=== PATIENT | male | born 1950 | race Caucasian/White ===

== ENCOUNTER 2019-02-04 14:24 | Inpatient (IN) | payer MEDICARE, OTHER ==
[~2019-02-04] VITALS: Ht 175.3 cm; Wt 72.7 kg
[~2019-02-04 14:24] MED LIST: ALEVE PO; RANITIDINE PO
[2019-02-04 16:09] LABS: BASOPHILS % (AUTO) 0.2 % (0-1); EOSINOPHILS % (AUTO) 0.1 % (0-6); HEMOGLOBIN 13.2 g/dl (14.0-17.9); LYMPHOCYTES # (AUTO) 0.2 X10'3 (1.1-4.8); LYMPHOCYTES % (AUTO) 3.4 % (21-51); MEAN CORPUSCULAR HEMOGLOBIN 34.3 PG (27.0-31.0); MEAN CORPUSCULAR HGB CONC 33.9 g/dL (33.0-36.5); MEAN CORPUSCULAR VOLUME 101.3 FL (78-98); MEAN PLATELET VOLUME 10.3 FL (7.4-10.4); MONOCYTES # (AUTO) 0.3 X10'3 (0-0.9); NEUTROPHILS # (AUTO) 6.4 X10'3 (1.8-7.7); NEUTROPHILS % (AUTO) 92.3 % (42-75); PLATELET COUNT 93 X10'3 (140-440); RED BLOOD COUNT 3.85 X10'6 (4.70-6.10); RED CELL DISTRIBUTION WIDTH 14.1 % (11.5-14.5); WHITE BLOOD COUNT 6.9 X10'3 (4.5-11.0)
[2019-02-04] MEDS ORDERED: morphine 4 MG/ML inj SYRINge IV ONE (16:15)
[2019-02-04] MEDS ORDERED: morphine 2 MG/ML inj. syringe IV PRN (16:15)
[2019-02-04 16:23] LABS: ALANINE AMINOTRANSFERASE 33 U/L (12-78); ALBUMIN 4.2 G/DL (3.4-5.0); ALBUMIN/GLOBULIN RATIO 1.2 (1.1-1.5); ALKALINE PHOSPHATASE 73 IU/L (46-116); ANION GAP 8 (8-16); ASPARTATE AMINO TRANSFERASE 33 U/L (10-37); BILIRUBIN,TOTAL 0.7 MG/DL (0.1-1.0); BLOOD UREA NITROGEN 36 MG/DL (7-18); BUN/CREATININE RATIO 32.4 (5.4-32.0); CALCIUM 10.6 MG/DL (8.5-10.1); CHLORIDE 105 MMOL/L (99-107); CREATININE 1.11 MG/DL (0.60-1.10); GLUCOSE 122 MG/DL (70-104); POTASSIUM 4.7 MMOL/L (3.5-5.1); SODIUM 141 MMOL/L (135-145); TOTAL CARBON DIOXIDE 27.7 MMOL/L (24-32); TOTAL PROTEIN 7.8 G/DL (6.4-8.2); eGFR 65 ML/MIN
[2019-02-04] MEDS ORDERED: NAPR220T67 PO (16:58)
[2019-02-04] MEDS ORDERED: RANI150T8 PO (16:58)
[2019-02-04] MEDS ORDERED: acetaminophen 325mg tablet PO PRN ×2 (17:00)
[2019-02-04] MEDS ORDERED: magnesium Cl slow-release 64mg tablet PO PRN (17:00)
[2019-02-04] MEDS ORDERED: ondansetron/PF 4mg/2ml inj IV PRN (17:00)
[2019-02-04] MEDS ORDERED: magnesium 2GM in 50ml NS 50 ML IV PRN (17:00)
[2019-02-04] MEDS: K and/or MAG REPLACEMENT MC SCH (17:00)
[2019-02-04] MEDS ORDERED: magnesium 4gm in 100ml NS 100 ML IV PRN (17:00)
[2019-02-04] MEDS ORDERED: potassium Cl 40MEQ/NS 500ml 500 ML IV PRN ×2 (17:00)
[2019-02-04] MEDS ORDERED: HYDROmorphone inj. 0.5 MG/0.5 ML DISP.SYRIN IV PRN (17:00)
[2019-02-04] MEDS ORDERED: mag hydrox/Alum hydrox/simeth 30ml oral suspension PO PRN (17:00)
[2019-02-04] MEDS ORDERED: HYDROmorphone 1 mg/ml syringe IV PRN (17:00)
[2019-02-04] MEDS ORDERED: potassium Cl 20 mEq SR tablet PO PRN ×2 (17:00)
[2019-02-04] MEDS ORDERED: magnesium hydroxide 30ml (MOM) UD suspension PO PRN (17:00)
[2019-02-04] MEDS ORDERED: bisacodyl 10mg suppository rectal RC PRN (17:00)
[2019-02-04 17:17] LABS: CLARITY,URINE CLEAR (Clear); COLOR,URINE YELLOW (Yellow); GLUCOSE, URINE NEGATIVE (Neg); KETONES,URINE NEGATIVE (Neg); LEUKOCYTE ESTERASE ,URINE NEGATIVE (Neg); NITRITES, URINE NEGATIVE (Neg); OCCULT BLOOD,URINE NEGATIVE (Neg); PROTEIN,URINE NEGATIVE (Neg); UROBILINOGEN,URINE 0.2 E.U/dL (0.2-1.0)
[2019-02-04 17:27] LABS: UA COLLECTION TYPE VOIDED
[2019-02-04 17:46] LABS: INR 1.1 INR; PARTIAL THROMBOPLASTIN TIME 25 SECONDS (22-32)
[2019-02-04] MEDS: normal saline 1000ml 1,000 ML IV SCH (18:27)
--- NOTE | 2019-02-04 19:40 | NUR ---
Report from Marcello CHAUDHRY from ED. Patient received from ED via renders. Used slideboard to get into bed. Bed is locked and low, call light is placed within reach.
[2019-02-04 19:50] VITALS: BP 122/62
[2019-02-04] MEDS ORDERED: non-formulary drug (Ranitidine HCl 1 TAB) PO SCH (20:00)
[2019-02-04] MEDS: docusate sod 100mg capsule PO SCH (20:00)
[2019-02-04] MEDS ORDERED: temazepam 15mg capsule PO PRN (21:00)
[2019-02-04] MEDS: famotidine 20mg tablet PO SCH (21:29)
[2019-02-04 22:00] VITALS: BP 115/70
--- NOTE | 2019-02-04 22:30 | NUR ---
Patient received 2 cartons of fibersource via gravity feed thru peg tube
[2019-02-05] VITALS (13 sets, daily range): BP systolic 101–123; BP diastolic 53–68
--- NOTE | 2019-02-05 00:54 | NUR ---
Called by television antenna installer. Having 2nd degree type 2. MD called and an EKG ordered. Vitals taken. Patient is asymptomatic.
--- NOTE | 2019-02-05 02:09 | NUR ---
I took the ekg and tele strips to the doctor to review and he gave me lab orders and wants the patient transferred to pcu for external pacing if needed. I called nursing supervisor [employer] to see if we could move patient to pcu for external pacing.
[2019-02-05 02:33] LABS: BASOPHILS % (AUTO) 0.1 % (0-1); EOSINOPHILS % (AUTO) 0.5 % (0-6); HEMATOCRIT 33.9 % (42.0-52.0); HEMOGLOBIN 11.5 g/dl (14.0-17.9); LYMPHOCYTES # (AUTO) 0.4 X10'3 (1.1-4.8); LYMPHOCYTES % (AUTO) 9.6 % (21-51); MEAN CORPUSCULAR HEMOGLOBIN 34.3 PG (27.0-31.0); MEAN CORPUSCULAR HGB CONC 33.9 g/dL (33.0-36.5); MEAN CORPUSCULAR VOLUME 101.1 FL (78-98); MEAN PLATELET VOLUME 10.1 FL (7.4-10.4); MONOCYTES # (AUTO) 0.4 X10'3 (0-0.9); MONOCYTES % (AUTO) 9.9 % (2-12); NEUTROPHILS # (AUTO) 3.2 X10'3 (1.8-7.7); NEUTROPHILS % (AUTO) 79.9 % (42-75); PLATELET COUNT 80 X10'3 (140-440); RED BLOOD COUNT 3.36 X10'6 (4.70-6.10); RED CELL DISTRIBUTION WIDTH 14.4 % (11.5-14.5)
[2019-02-05 02:43] LABS: ALANINE AMINOTRANSFERASE 28 U/L (12-78); ALBUMIN 3.4 G/DL (3.4-5.0); ALBUMIN/GLOBULIN RATIO 1.1 (1.1-1.5); ALKALINE PHOSPHATASE 57 IU/L (46-116); ANION GAP 5 (8-16); ASPARTATE AMINO TRANSFERASE 24 U/L (10-37); BILIRUBIN,TOTAL 0.6 MG/DL (0.1-1.0); BLOOD UREA NITROGEN 31 MG/DL (7-18); BUN/CREATININE RATIO 35.6 (5.4-32.0); CALCIUM 9.1 MG/DL (8.5-10.1); CHLORIDE 106 MMOL/L (99-107); CREATININE 0.87 MG/DL (0.60-1.10); GLUCOSE 109 MG/DL (70-104); MAGNESIUM 2.1 MG/DL (1.5-2.4); PHOSPHORUS 2.6 MG/DL (2.3-4.5); POTASSIUM 4.2 MMOL/L (3.5-5.1); SODIUM 140 MMOL/L (135-145); TOTAL CARBON DIOXIDE 29.3 MMOL/L (24-32); TOTAL PROTEIN 6.6 G/DL (6.4-8.2); eGFR 87 ML/MIN
--- NOTE | 2019-02-05 03:48 | NUR ---
Problems reprioritized. Patient report given, questions answered & plan of care reviewed with Estela CHAUDHRY.
[2019-02-05] MEDS: normal saline 1000ml 1,000 ML IV SCH ×3 (04:00→23:29)
[2019-02-05 06:54] LABS: HEMATOCRIT 32.5 % (42.0-52.0); HEMOGLOBIN 11.2 g/dl (14.0-17.9); MEAN CORPUSCULAR HEMOGLOBIN 34.7 PG (27.0-31.0); MEAN CORPUSCULAR HGB CONC 34.4 g/dL (33.0-36.5); MEAN CORPUSCULAR VOLUME 100.9 FL (78-98); MEAN PLATELET VOLUME 10.5 FL (7.4-10.4); PLATELET COUNT 78 X10'3 (140-440); RED BLOOD COUNT 3.23 X10'6 (4.70-6.10); RED CELL DISTRIBUTION WIDTH 14.1 % (11.5-14.5)
[2019-02-05 07:00] LABS: ALBUMIN 3.2 G/DL (3.4-5.0); ANION GAP 7 (8-16); BLOOD UREA NITROGEN 29 MG/DL (7-18); BUN/CREATININE RATIO 35.8 (5.4-32.0); CALCIUM 9.9 MG/DL (8.5-10.1); CHLORIDE 108 MMOL/L (99-107); CREATININE 0.81 MG/DL (0.60-1.10); GLUCOSE 56 MG/DL (70-104); MAGNESIUM 2.1 MG/DL (1.5-2.4); POTASSIUM 4.6 MMOL/L (3.5-5.1); SODIUM 143 MMOL/L (135-145); eGFR > 90 ML/MIN
[2019-02-05] MEDS: docusate sod 100mg capsule PO SCH ×2 (08:00→20:57)
[2019-02-05] MEDS: famotidine 20mg tablet PO SCH ×2 (08:00→20:00)
[2019-02-05] MEDS: K and/or MAG REPLACEMENT MC SCH (08:00)
[2019-02-05] MEDS ORDERED: ringers solution, lacted 1,000 ML IV SCH (09:26)
[2019-02-05] MEDS ORDERED: ringers solution, lacted 1,000 ML IV ONE (09:26)
[2019-02-05] MEDS ORDERED: ondansetron/PF 4mg/2ml inj IV PRN ×2 (09:30→12:40)
[2019-02-05] MEDS ORDERED: hydrALAZINE 20mg/ml inj. IV PRN (09:30)
[2019-02-05] MEDS ORDERED: meperidine/PF 25mg/ml syringe IV PRN ×2 (09:30)
[2019-02-05] MEDS ORDERED: morphine 4 MG/ML inj SYRINge IV PRN ×2 (09:30)
[2019-02-05] MEDS ORDERED: enalaprilat dihydrate 2.5mg/2ml vial IV PRN (09:30)
[2019-02-05] MEDS ORDERED: ceFAZolin 1GM/D5W- ADD-VANTAGE 50 ML IV ONE (10:00)
--- NOTE | 2019-02-05 11:00 | NUR ---
Patient left for surgery I Bennett RN
[2019-02-05] MEDS ORDERED: fentaNYL/PF 50MCG/1 ML 2ML syringe ONE (11:48)
[2019-02-05] MEDS ORDERED: propofol 10mg/ml 20ml vial IV ONE (11:48)
[2019-02-05] MEDS ORDERED: MIDAZolam 5mg/5ml vial ONE (11:48)
[2019-02-05] MEDS ORDERED: ceFAZolin 1000mg inj ONE (12:12)
[2019-02-05] MEDS ORDERED: ePHEDrine 50MG/ML INJ. ONE (12:22)
[2019-02-05] MEDS ORDERED: magnesium hydroxide 30ml (MOM) UD suspension PO PRN (12:40)
[2019-02-05] MEDS ORDERED: diphenhydrAMINE 25mg capsule PO PRN ×2 (12:40)
[2019-02-05] MEDS ORDERED: bisacodyl 10mg suppository rectal RC PRN (12:40)
[2019-02-05] MEDS ORDERED: acetaminophen 325mg tablet PO PRN (12:40)
--- NOTE | 2019-02-05 12:43 | NUR ---
Received from OR via ORTHO BED , accompanied by Anesthesiologist ANALI and report given by Anesthesiolgist. PATIENT WITH 20G PIV IN AC ON RIGHT. PATIENT WTIH 10L MASK ON WITH 100% SATURATION. SCDS DONNED. LEFT HIP DRESSING IS CDI. + DP. DENIES PAIN AT THIS TIME. VSS Addendum: 02/05/19 at 1259 by Justin Alamo RN, RN Amended: Links added.
--- NOTE | 2019-02-05 13:22 | NUR ---
ADDENDUM - L1 SENSATION FROM SPINAL ANESTHESIA. Addendum: 02/05/19 at 1323 by Justin Alamo RN, RN Amended: Links added.
--- NOTE | 2019-02-05 13:33 | NUR ---
ALL CRITERIA FOR TRANSFER TO THE FLOOR HAS BEEN ACHIEVED. VSS. BED LOW, CALL LIGHT AND VS. SET IN PLACE. RN PRESENT TO ACCEPT CARE. PATIENT RESTING COMFORTABLY IN BED. BELONGINGS SENT WITH PATIENT. DRESSINGS CDI. DAUGHTER PRESENT WITH PATIENT, READER GLASSES ON. RN PRESENT TO ASSESS PATIENT. Addendum: 02/05/19 at 1403 by Justin Rondon - ISIDORO RN Amended: Links added.
--- NOTE | 2019-02-05 14:00 | NUR ---
patient back from the surgery VSS family at the bed site Sara Guajardo RN
--- NOTE | 2019-02-05 16:51 | NUR ---
[facility] 3020 after surgery on regular diet with PEG tube may he has his on home food liquved FIBERSOURS? Loraine ph#[phone] Thank you
--- NOTE | 2019-02-05 17:00 | NUR ---
Dr Randy colvin to patient have his on food from home Sara Guajardo RN
[2019-02-05] MEDS: ceFAZolin 1GM/D5W- ADD-VANTAGE 50 ML IV SCH (17:49)
[2019-02-05] MEDS: HYDROcodone/acetaminophen 5mg/325mg tablet PO PRN (20:13)
[2019-02-05] MEDS: sennosides 8.6mg tablet PO SCH (20:57)
[2019-02-06] VITALS (7 sets, daily range): BP systolic 100–122; BP diastolic 55–61
[2019-02-06] MEDS: ceFAZolin 1GM/D5W- ADD-VANTAGE 50 ML IV SCH (00:06)
[2019-02-06] MEDS: HYDROcodone/acetaminophen 5mg/325mg tablet PO PRN (04:44)
[2019-02-06 06:55] LABS: HEMATOCRIT 31.7 % (42.0-52.0); MEAN CORPUSCULAR HGB CONC 34.6 g/dL (33.0-36.5); MEAN PLATELET VOLUME 10.1 FL (7.4-10.4); PLATELET COUNT 65 X10'3 (140-440); RED BLOOD COUNT 3.14 X10'6 (4.70-6.10); RED CELL DISTRIBUTION WIDTH 14.1 % (11.5-14.5)
[2019-02-06 07:06] LABS: ALBUMIN 2.9 G/DL (3.4-5.0); ANION GAP 5 (8-16); BLOOD UREA NITROGEN 17 MG/DL (7-18); CALCIUM 9.2 MG/DL (8.5-10.1); CHLORIDE 108 MMOL/L (99-107); CREATININE 0.74 MG/DL (0.60-1.10); GLUCOSE 80 MG/DL (70-104); MAGNESIUM 1.9 MG/DL (1.5-2.4); POTASSIUM 4.2 MMOL/L (3.5-5.1); SODIUM 139 MMOL/L (135-145); TOTAL CARBON DIOXIDE 25.7 MMOL/L (24-32); eGFR > 90 ML/MIN
[2019-02-06] MEDS: famotidine 20mg tablet PO SCH ×2 (07:34→20:57)
[2019-02-06] MEDS: docusate sod 100mg capsule PO SCH ×2 (07:35→20:57)
[2019-02-06] MEDS: K and/or MAG REPLACEMENT MC SCH (07:39)
[2019-02-06] MEDS ORDERED: enoxaparin 40mg/0.4ml syringe SQ SCH (08:00)
[2019-02-06] MEDS: HYDROcodone/acetaminophen 10/325mg tab PO PRN ×2 (11:53→21:15)
[2019-02-06] MEDS: normal saline 1000ml 1,000 ML IV SCH ×2 (13:00→18:56)
[2019-02-06] MEDS: sennosides 8.6mg tablet PO SCH (20:57)
[2019-02-07] MEDS: HYDROcodone/acetaminophen 10/325mg tab PO PRN ×3 (01:37→18:55)
[2019-02-07 02:00] VITALS: BP 117/61
[2019-02-07] MEDS: normal saline 1000ml 1,000 ML IV SCH ×2 (05:36→19:08)
--- NOTE | 2019-02-07 06:28 | NUR ---
Patient in room PCU 3020. I have received report from Estela CHAUDHRY and had the opportunity to ask questions and assume patient care.
[2019-02-07 06:30] VITALS: BP 113/62
[2019-02-07 07:12] LABS: HEMATOCRIT 29.1 % (42.0-52.0); HEMOGLOBIN 10.1 g/dl (14.0-17.9); MEAN CORPUSCULAR HEMOGLOBIN 34.9 PG (27.0-31.0); MEAN CORPUSCULAR HGB CONC 34.8 g/dL (33.0-36.5); MEAN CORPUSCULAR VOLUME 100.5 FL (78-98); MEAN PLATELET VOLUME 9.9 FL (7.4-10.4); PLATELET COUNT 70 X10'3 (140-440); RED BLOOD COUNT 2.89 X10'6 (4.70-6.10); RED CELL DISTRIBUTION WIDTH 13.9 % (11.5-14.5); WHITE BLOOD COUNT 3.4 X10'3 (4.5-11.0)
[2019-02-07 07:20] LABS: ALBUMIN 2.7 G/DL (3.4-5.0); ANION GAP 6 (8-16); BLOOD UREA NITROGEN 18 MG/DL (7-18); BUN/CREATININE RATIO 27.7 (5.4-32.0); CALCIUM 9.1 MG/DL (8.5-10.1); CHLORIDE 108 MMOL/L (99-107); CREATININE 0.65 MG/DL (0.60-1.10); GLUCOSE 79 MG/DL (70-104); MAGNESIUM 1.9 MG/DL (1.5-2.4); POTASSIUM 4.3 MMOL/L (3.5-5.1); SODIUM 141 MMOL/L (135-145); TOTAL CARBON DIOXIDE 26.9 MMOL/L (24-32); eGFR > 90 ML/MIN
[2019-02-07] MEDS: docusate sod 100mg capsule PO SCH ×2 (08:00→20:00)
[2019-02-07] MEDS: famotidine 20mg tablet PO SCH ×2 (08:00→20:00)
[2019-02-07] MEDS: K and/or MAG REPLACEMENT MC SCH (08:00)
[2019-02-07 11:00] VITALS: BP 99/57
[2019-02-07 15:00] VITALS: BP 107/66
[2019-02-07 18:00] VITALS: BP 140/74
--- NOTE | 2019-02-07 18:34 | NUR ---
Problems reprioritized. Patient report given, questions answered & plan of care reviewed with Vera CHAUDHRY.
[2019-02-07] MEDS: sennosides 8.6mg tablet PO SCH (21:00)
[2019-02-07 22:00] VITALS: BP 135/75
[2019-02-08] MEDS: normal saline 1000ml 1,000 ML IV SCH (00:56)
[2019-02-08 02:00] VITALS: BP_SYST 121; BP_SYST 135; BP_DIAS 67; BP_DIAS 75
[2019-02-08 06:00] VITALS: BP 116/68
[2019-02-08 06:06] LABS: HEMATOCRIT 27.4 % (42.0-52.0); HEMOGLOBIN 9.5 g/dl (14.0-17.9); MEAN CORPUSCULAR HEMOGLOBIN 34.8 PG (27.0-31.0); MEAN CORPUSCULAR HGB CONC 34.7 g/dL (33.0-36.5); MEAN CORPUSCULAR VOLUME 100.3 FL (78-98); MEAN PLATELET VOLUME 10.1 FL (7.4-10.4); PLATELET COUNT 73 X10'3 (140-440); RED BLOOD COUNT 2.73 X10'6 (4.70-6.10); WHITE BLOOD COUNT 2.9 X10'3 (4.5-11.0)
[2019-02-08 06:10] LABS: ALBUMIN 2.6 G/DL (3.4-5.0); ANION GAP 4 (8-16); BLOOD UREA NITROGEN 20 MG/DL (7-18); BUN/CREATININE RATIO 30.8 (5.4-32.0); CALCIUM 8.7 MG/DL (8.5-10.1); CHLORIDE 107 MMOL/L (99-107); CREATININE 0.65 MG/DL (0.60-1.10); GLUCOSE 74 MG/DL (70-104); MAGNESIUM 1.8 MG/DL (1.5-2.4); POTASSIUM 4.1 MMOL/L (3.5-5.1); SODIUM 140 MMOL/L (135-145); TOTAL CARBON DIOXIDE 29.4 MMOL/L (24-32); eGFR > 90 ML/MIN
--- NOTE | 2019-02-08 06:39 | NUR ---
Patient in room PCU 3020. I have received report from Vera CHAUDHRY and had the opportunity to ask questions and assume patient care.
[2019-02-08] MEDS: famotidine 20mg tablet PO SCH (08:00)
[2019-02-08] MEDS: K and/or MAG REPLACEMENT MC SCH (08:00)
[2019-02-08] MEDS: docusate sod 100mg capsule PO SCH (08:00)
[2019-02-08] MEDS: HYDROcodone/acetaminophen 10/325mg tab PO PRN (09:33)
[2019-02-08 11:00] VITALS: BP 116/64
--- NOTE | 2019-02-08 12:19 | NUR ---
Called report to [facility] and spoke to Zohra CHAUDHRY. Gave opportunity to ask questions and all questions answered. Pickup time is scheduled for 1400.
--- NOTE | 2019-02-08 13:53 | NUR ---
Per MD, patient stable for transfer to [facility]. Transfer packet completed and copy made by case management for hospital chart. IV's discontinued from right AC and left forearm with catheters intact. Tele monitor removed. Patient did not have clothing, provided clothing to patient. Photo taken of surgical site for hospital records and surgical dressing changed per order. All belongings sent with patient. Escorted via wheelchair by [employer] staff. Transferred to [facility] by [facility].
== END 2019-02-08 14:00 | DRG 482 ==
LOC: ER 14:25 → ORTHO 4S 19:43 → PCU 3S 02-05 03:34
PROVIDERS: ADMIT Family Medicine; ATTEND Orthopaedic Surgery
PROC: 0QS734Z Reposition Left Upper Femur with Internal Fixation Device, Percutaneous Approach (ICD-10-PCS; principal; 2019-02-05 11:53)
PROC: 30233R1 Transfusion of Nonautologous Platelets into Peripheral Vein, Percutaneous Approach (ICD-10-PCS; 2019-02-06)
DX: S72.002A Fracture of unspecified part of neck of left femur, initial encounter for closed fracture (principal); I44.1 Atrioventricular block, second degree; M21.052 Valgus deformity, not elsewhere classified, left hip; K21.9 Gastro-esophageal reflux disease without esophagitis; W01.0XXA Fall on same level from slipping, tripping and stumbling without subsequent striking against object, initial encounter; Z96.652 Presence of left artificial knee joint; R73.9 Hyperglycemia, unspecified; M19.90 Unspecified osteoarthritis, unspecified site; R00.1 Bradycardia, unspecified; D69.6 Thrombocytopenia, unspecified; Z85.810 Personal history of malignant neoplasm of tongue; Z87.891 Personal history of nicotine dependence; Z85.828 Personal history of other malignant neoplasm of skin; Y93.89 Activity, other specified; Y92.89 Other specified places as the place of occurrence of the external cause; Y99.8 Other external cause status; Z92.3 Personal history of irradiation; Z93.1 Gastrostomy status
CPT/HCPCS: 36415; 71045; 73502; 76000; 80048; 80053; 81003; 83735; 84100; 85025; 85027; 85610; 85730; 86885; 86900; 86901; 87070; 93005; 96374; 97110; 97116; 97162; 97530; 99285; G0378; J0690; J1170; J2250; J2270; J2704; J3010; J7030; J7120; P9035

== ENCOUNTER 2019-05-04 07:52 | Inpatient (IN) | payer MEDICARE, OTHER ==
[2019-04-26 11:20] LABS: BASOPHILS % (AUTO) 0.3 % (0-1); EOSINOPHILS % (AUTO) 1.6 % (0-6); LYMPHOCYTES # (AUTO) 0.5 X10'3 (1.1-4.8); LYMPHOCYTES % (AUTO) 16.4 % (21-51); MEAN CORPUSCULAR HGB CONC 33.9 g/dL (33.0-36.5); MEAN CORPUSCULAR VOLUME 100.2 FL (78-98); MEAN PLATELET VOLUME 9.6 FL (7.4-10.4); MONOCYTES # (AUTO) 0.3 X10'3 (0-0.9); MONOCYTES % (AUTO) 9.3 % (2-12); NEUTROPHILS # (AUTO) 2.2 X10'3 (1.8-7.7); NEUTROPHILS % (AUTO) 72.4 % (42-75); PRE OP HEMATOCRIT 38.1 % (42.0-52.0); PRE OP HEMOGLOBIN 12.9 g/dL (14.0-17.9); RED CELL DISTRIBUTION WIDTH 14.2 % (11.5-14.5)
[2019-04-26 11:34] LABS: PRE OP INR 1.1 INR; PRE OP PROTIME 10.7 SECONDS (9.0-12.0)
[2019-04-26 11:37] LABS: PRE OP PLATELET COUNT 102 X10'3 (140-440)
[2019-04-26 11:38] LABS: ALBUMIN 3.7 G/DL (3.4-5.0); ALBUMIN/GLOBULIN RATIO 0.9 (1.1-1.5); ALKALINE PHOSPHATASE 69 IU/L (46-116); BLOOD UREA NITROGEN 23 MG/DL (7-18); BUN/CREATININE RATIO 28.8 (5.4-32.0); CALCIUM 9.5 MG/DL (8.5-10.1); CHLORIDE 104 MMOL/L (99-107); PRE OP ALT 26 U/L (30-65); PRE OP ANION GAP 5 (8-16); PRE OP AST 20 U/L (10-37); PRE OP BILIRUB, TOTAL 0.6 MG/DL (0.0-1.0); PRE OP GLUCOSE 107 MG/DL (70-104); PRE OP POTASSIUM 4.5 MMOL/L (3.4-5.1); PRE OP SODIUM 138 MMOL/L (135-145); TOTAL CARBON DIOXIDE 29.2 MMOL/L (24-32); TOTAL PROTEIN 7.7 G/DL (6.4-8.2); eGFR > 90 ML/MIN
[~2019-05-04] VITALS: Ht 172.7 cm; Wt 72.6 kg
[2019-05-04] VITALS (17 sets, daily range): BP systolic 93–130; BP diastolic 54–94
[~2019-05-04 07:52] MED LIST changes: +ACET160S GT; -ALEVE PO; +NORMAL SALINE IV ONE; +RANI-648 GT; -RANITIDINE PO; +TRANEXAMIC ACID IV ONE; +cefazolin/dext.iso 2gm/100 ML IV ONE; +famotidine 20mg tablet PO ONE; +ringers solution, lacted 1,000 ML IV SCH
[2019-05-04] MEDS ORDERED: tranexamic acid inj. 750 MG in normal saline 100ml IV soln 100 ML IV ONE (08:30)
[2019-05-04] MEDS ORDERED: vancomycin/NS 1 GM ADD-VANTAGE 250 ML X 1 DOSE IV ONE (08:40)
[2019-05-04] MEDS ORDERED: famotidine/PF 10 mg/ml inj IV ONE (09:00)
[2019-05-04] MEDS ORDERED: succinylcholine 20mg/ml inj IV ONE (11:12)
[2019-05-04] MEDS ORDERED: LIDOcaine 2% (20mg/ml) 5ml vial ONE (11:13)
[2019-05-04] MEDS ORDERED: propofol inj 20 ML IV ONE (11:13)
[2019-05-04] MEDS ORDERED: fentaNYL/PF 50MCG/1 ML 2ML syringe ONE ×2 (11:14→11:16)
[2019-05-04] MEDS ORDERED: ROPIVAcaine 0.5% (5mg/ml) 30ml vial ONE ×3 (11:17→12:52)
[2019-05-04] MEDS ORDERED: midazolam 2 mg/2 ml injection ONE (11:19)
[2019-05-04] MEDS ORDERED: sevoflurane 250ml liquid IH ONE (11:20)
[2019-05-04] MEDS ORDERED: dexamethasone sod phosphate 10mg/ml inj ONE (11:20)
[2019-05-04] MEDS ORDERED: atropine 0.4 mg/ml 20ml vial ONE (12:05)
[2019-05-04] MEDS ORDERED: ondansetron/PF 4mg/2ml inj ONE (12:06)
[2019-05-04] MEDS ORDERED: HYDROmorphone 1 mg/ml syringe IV PRN (12:10)
[2019-05-04] MEDS ORDERED: acetaminophen 325mg tablet PO PRN (12:10)
[2019-05-04] MEDS ORDERED: bisacodyl 10mg suppository rectal RC PRN (12:10)
[2019-05-04] MEDS ORDERED: oxyCODONE IR 5mg (immed. release) tablet PO PRN ×2 (12:10)
[2019-05-04] MEDS ORDERED: ondansetron/PF 4mg/2ml inj IV PRN ×2 (12:10→12:35)
[2019-05-04] MEDS ORDERED: magnesium hydroxide 30ml (MOM) UD suspension PO PRN (12:10)
[2019-05-04] MEDS ORDERED: diphenhydrAMINE 25mg capsule PO PRN ×2 (12:10)
[2019-05-04] MEDS ORDERED: HYDROmorphone inj. 0.5 MG/0.5 ML DISP.SYRIN IV PRN (12:10)
[2019-05-04] MEDS ORDERED: ketorolac trometh. 30mg/ml inj. ONE ×2 (12:14→12:52)
[2019-05-04] MEDS ORDERED: ringers solution, lacted 1,000 ML IV SCH (12:31)
[2019-05-04] MEDS ORDERED: enalaprilat dihydrate 2.5mg/2ml vial IV PRN (12:35)
[2019-05-04] MEDS ORDERED: morphine 4 MG/ML inj SYRINge IV PRN ×2 (12:35)
[2019-05-04] MEDS ORDERED: fentaNYL/PF 50MCG/1 ML 2ML syringe IV PRN ×2 (12:35)
[2019-05-04] MEDS ORDERED: hydrALAZINE 20mg/ml inj. IV PRN (12:35)
[2019-05-04] MEDS ORDERED: ROPIVAcaine 0.2%/PF PAIN PUMP 400 ML IJ SCH (13:30)
--- NOTE | 2019-05-04 13:45 | NUR ---
Received from OR via bed, accompanied by Anesthesiologist. Report received. Initial physical assessment done and recorded.
--- NOTE | 2019-05-04 14:15 | NUR ---
received report from marylou herrera in recovery
--- NOTE | 2019-05-04 14:32 | NUR ---
pt arrived on floor awake and in ortho bed
--- NOTE | 2019-05-04 14:45 | NUR ---
Discharge criteria met, report to receiving floor. Transferred to room in stable condition.
[2019-05-04] MEDS: acetaminophen 325mg tablet PO SCH ×2 (15:16→19:28)
[2019-05-04] MEDS ORDERED: tranexamic acid inj. 700 MG in normal saline 100ml IV soln 100 ML IV ONE (16:00)
[2019-05-04] MEDS: potassium cl 20mEq in 1/2 NS 1,000 ML IV SCH (17:11)
[2019-05-04] MEDS: ceFAZolin 1GM/D5W- ADD-VANTAGE 50 ML IV SCH ×2 (17:13→23:07)
--- NOTE | 2019-05-04 18:13 | NUR ---
GAVE REPORT TO ISIDORO PAGAN
--- NOTE | 2019-05-04 18:15 | NUR ---
Received report from Sapna CHAUDHRY, assumed care of patient with Patricia CHAUDHRY.
[2019-05-04] MEDS: famotidine 20mg tablet PO SCH (19:27)
[2019-05-04] MEDS ORDERED: vancomycin/NS 1 GM ADD-VANTAGE 250 ML IV SCH (20:00)
[2019-05-04] MEDS ORDERED: sennosides 8.6mg tablet PO SCH (21:00)
[2019-05-05] MEDS: acetaminophen 325mg tablet PO SCH ×2 (01:05→09:16)
[2019-05-05] MEDS: potassium cl 20mEq in 1/2 NS 1,000 ML IV SCH ×2 (03:25→09:16)
--- NOTE | 2019-05-05 05:45 | NUR ---
In agreement with all charting and medication administration reviewed for this shift completed by Judit CHAUDHRY.
[2019-05-05 06:00] VITALS: BP 113/62
[2019-05-05 06:20] LABS: BASOPHILS % (AUTO) 0.1 % (0-1); EOSINOPHILS % (AUTO) 0.1 % (0-6); HEMATOCRIT 30.7 % (42.0-52.0); HEMOGLOBIN 10.5 g/dl (14.0-17.9); LYMPHOCYTES # (AUTO) 0.3 X10'3 (1.1-4.8); LYMPHOCYTES % (AUTO) 6.5 % (21-51); MEAN CORPUSCULAR HEMOGLOBIN 34.3 PG (27.0-31.0); MEAN CORPUSCULAR HGB CONC 34.3 g/dL (33.0-36.5); MEAN PLATELET VOLUME 10.1 FL (7.4-10.4); MONOCYTES # (AUTO) 0.4 X10'3 (0-0.9); MONOCYTES % (AUTO) 10.2 % (2-12); NEUTROPHILS # (AUTO) 3.3 X10'3 (1.8-7.7); NEUTROPHILS % (AUTO) 83.1 % (42-75); PLATELET COUNT 68 X10'3 (140-440); RED BLOOD COUNT 3.07 X10'6 (4.70-6.10); RED CELL DISTRIBUTION WIDTH 13.9 % (11.5-14.5)
[2019-05-05 06:35] LABS: ANION GAP 9 (8-16); CHLORIDE 105 MMOL/L (99-107); POTASSIUM 4.8 MMOL/L (3.5-5.1); SODIUM 140 MMOL/L (135-145); TOTAL CARBON DIOXIDE 26.2 MMOL/L (24-32)
--- NOTE | 2019-05-05 06:40 | NUR ---
Gave report to Misael CHAUDHRY with Patricia CHAUDHRY.
--- NOTE | 2019-05-05 06:41 | NUR ---
Patient in room ORTHO 4017. I have received report from Judit CHAUDHRY and had the opportunity to ask questions and assume patient care.
[2019-05-05] MEDS ORDERED: aspirin 325mg tablet PO SCH (08:30)
[2019-05-05] MEDS: famotidine 20mg tablet PO SCH (09:16)
--- NOTE | 2019-05-05 11:25 | NUR ---
PATIENT DISCHARGED SAFELY WITH DAUGHTER. ALL BELONGINGS IN POSSESSION. IV REMOVED. PATIENT VERBALIZES UNDERSTANDING OF ALL DISCHARGE INSTRUCTIONS.
--- NOTE | 2019-05-05 11:26 | NUR ---
pT ROSALIND. WC OUT WITH BELONGINGS, DC PAPERWORK IN STABLE CONDITION.
--- NOTE | 2019-05-05 11:57 | NUR ---
TF Consult: Pt G-tube and manages feeding at home. Currently d/c per RN. No nutrition intervention needed. Addendum: 05/05/19 at [address] Amended: Links added.
[2019-05-05] MEDS ORDERED: celeCOXIB 100mg capsule PO SCH (20:00)
[2019-05-06] MEDS ORDERED: acetaminophen 325mg tablet PO PRN (12:10)
== END 2019-05-05 11:30 | disposition home or self-care (01) | DRG 483 ==
LOC: PAS IN 07:52 → EDSTATUS 12:15 → ORTHO 4S 14:32
PROVIDERS: ADMIT Orthopaedic Surgery; ATTEND Orthopaedic Surgery
PROC: 0LS30ZZ Reposition Right Upper Arm Tendon, Open Approach (ICD-10-PCS; 2019-05-04)
PROC: 3E0T3BZ Introduction of Anesthetic Agent into Peripheral Nerves and Plexi, Percutaneous Approach (ICD-10-PCS; 2019-05-04)
PROC: 0RRJ00Z Replacement of Right Shoulder Joint with Reverse Ball and Socket Synthetic Substitute, Open Approach (ICD-10-PCS; principal; 2019-05-04 11:20)
DX: M19.011 Primary osteoarthritis, right shoulder (principal); D62 Acute posthemorrhagic anemia; M75.121 Complete rotator cuff tear or rupture of right shoulder, not specified as traumatic; M75.21 Bicipital tendinitis, right shoulder; K21.9 Gastro-esophageal reflux disease without esophagitis; M65.811 Other synovitis and tenosynovitis, right shoulder; Z85.819 Personal history of malignant neoplasm of unspecified site of lip, oral cavity, and pharynx; Z79.899 Other long term (current) drug therapy
CPT/HCPCS: 36415; 80051; 80053; 82948; 85025; 85610; 85730; 87081; 97110; 97161; 97530; A4565; A4618; A7000; C1776; G0378; J0330; J0461; J0690; J1100; J1885; J2001; J2250; J2405; J2704; J2795; J3010; J3370; J3480; J3490; J7120

== ENCOUNTER 2020-11-14 06:21 | Day surgery (SDC) | payer MEDICARE, OTHER ==
[2020-11-07 11:53] LABS: BASOPHILS % (AUTO) 0.5 % (0-1); EOSINOPHILS # (AUTO) 0.1 X10'3 (0-0.9); EOSINOPHILS % (AUTO) 2.5 % (0-6); LYMPHOCYTES # (AUTO) 0.7 X10'3 (1.1-4.8); LYMPHOCYTES % (AUTO) 14.2 % (21-51); MEAN CORPUSCULAR HEMOGLOBIN 33.8 PG (27.0-31.0); MEAN CORPUSCULAR HGB CONC 34.3 g/dL (33.0-36.5); MEAN CORPUSCULAR VOLUME 98.5 FL (78-98); MEAN PLATELET VOLUME 9.4 FL (7.4-10.4); MONOCYTES # (AUTO) 0.3 X10'3 (0-0.9); MONOCYTES % (AUTO) 6.6 % (2-12); NEUTROPHILS % (AUTO) 76.2 % (42-75); PRE OP HEMATOCRIT 35.6 % (42.0-52.0); PRE OP HEMOGLOBIN 12.2 g/dL (14.0-17.9); PRE OP PLATELET COUNT 135 X10'3 (140-440); RED BLOOD COUNT 3.61 X10'6 (4.70-6.10); RED CELL DISTRIBUTION WIDTH 13.9 % (11.5-14.5)
[2020-11-07 12:05] LABS: PRE OP INR 1.1 INR; PRE OP PROTIME 11.3 SECONDS (9.0-12.0)
[2020-11-07 12:16] LABS: ALBUMIN 3.9 G/DL (3.4-5.0); ALKALINE PHOSPHATASE 70 IU/L (46-116); BLOOD UREA NITROGEN 30 MG/DL (7-18); BUN/CREATININE RATIO 30.9 (5.4-32.0); CALCIUM 9.4 MG/DL (8.5-10.1); CHLORIDE 103 MMOL/L (99-107); CREATININE 0.97 MG/DL (0.60-1.10); PRE OP ALT 22 U/L (30-65); PRE OP ANION GAP 7 (8-16); PRE OP AST 23 U/L (10-37); PRE OP BILIRUB, TOTAL 0.7 MG/DL (0.0-1.0); PRE OP GLUCOSE 98 MG/DL (70-104); PRE OP POTASSIUM 4.7 MMOL/L (3.4-5.1); PRE OP SODIUM 138 MMOL/L (135-145); TOTAL CARBON DIOXIDE 28.1 MMOL/L (24-32); TOTAL PROTEIN 7.7 G/DL (6.4-8.2); eGFR 76 ML/MIN
[2020-11-14] VITALS (18 sets, daily range): BP systolic 95–133; BP diastolic 58–84
[~2020-11-14] VITALS: Ht 172.7 cm; Wt 75.3 kg
[~2020-11-14 06:21] MED LIST changes: -ACET160S GT; +FAMO-128 GT; +NAPR-56 PO; -NORMAL SALINE IV ONE; -RANI-648 GT; -TRANEXAMIC ACID IV ONE; +[UNRECOGNIZED DRUG - CODE] PO; +acetaminophen 325mg tablet PO ONE; +ceFAZolin 2gm in dextrose, iso 50 ML IV ONE; -cefazolin/dext.iso 2gm/100 ML IV ONE; +celeCOXIB 100mg capsule PO ONE; -famotidine 20mg tablet PO ONE; +gabapentin 300mg capsule PO ONE; +metoclopramide 5 mg/ml inj IV ONE; +oxyCODONE SR 10mg (sust. release) tab -2 tabs (20mg) PO ONE; -ringers solution, lacted 1,000 ML IV SCH; +tranexamic acid 1gm/0.7% sal. 100 ML IV ONE; +vancomycin 1,500 MG in NS 300ml IV soln IV ONE
[2020-11-14] MEDS ORDERED: HYDROmorphone 1 mg/ml syringe IV PRN (06:40)
[2020-11-14] MEDS ORDERED: bisacodyl 10mg suppository rectal RC PRN (06:40)
[2020-11-14] MEDS ORDERED: HYDROcodone/acetaminophen 10/325mg tab PO PRN ×2 (06:40)
[2020-11-14] MEDS ORDERED: HYDROmorphone inj. 0.5 MG/0.5 ML DISP.SYRIN IV PRN (06:40)
[2020-11-14] MEDS ORDERED: ondansetron/PF 4mg/2ml inj IV PRN ×2 (06:40→11:15)
[2020-11-14] MEDS ORDERED: diphenhydrAMINE 25mg capsule PO PRN ×2 (06:40)
[2020-11-14] MEDS ORDERED: magnesium hydroxide 30ml (MOM) UD suspension PO PRN (06:40)
[2020-11-14] MEDS ORDERED: acetaminophen 325mg tablet PO PRN (06:40)
[2020-11-14] MEDS ORDERED: LIDOcaine 1% (10mg/ml) 2ml vial ONE (07:55)
[2020-11-14] MEDS: gabapentin 300mg capsule PO SCH ×2 (08:00→13:00)
[2020-11-14] MEDS ORDERED: ceFAZolin/D5W- 1GM premix 50 ML IV SCH (08:00)
[2020-11-14] MEDS ORDERED: vancomycin/NS 1 GM ADD-VANTAGE 250 ML IV SCH ×2 (08:00→20:00)
[2020-11-14] MEDS ORDERED: famotidine 20mg tablet PO SCH (08:00)
[2020-11-14] MEDS: ringers solution, lacted 1,000 ML IV SCH ×2 (08:16→14:23)
[2020-11-14] MEDS ORDERED: vancomycin 1,000mg inj ONE (09:45)
[2020-11-14] MEDS ORDERED: ROPIVAcaine inj 250 MG, CloNIDine/PF inj 80 MCG, epiNEPHrine inj 0.5 MG in normal salin... IV ONE (09:50)
[2020-11-14] MEDS ORDERED: sevoflurane 250ml liquid IH ONE (10:08)
[2020-11-14] MEDS ORDERED: MIDAZolam 5mg/5ml vial ONE (10:10)
[2020-11-14] MEDS ORDERED: fentaNYL/PF 50MCG/1 ML 2ML syringe ONE (10:10)
[2020-11-14] MEDS ORDERED: diphenhydrAMINE 50 mg/ml inj ONE (11:10)
[2020-11-14] MEDS ORDERED: glycopyrrolate 0.2mg/ml inj ONE (11:10)
[2020-11-14] MEDS ORDERED: ePHEDrine 50MG/ML INJ. ONE (11:10)
[2020-11-14] MEDS ORDERED: HYDROmorphone/PF 0.2 MG/ML SYRINGE IV PRN ×2 (11:15)
[2020-11-14] MEDS ORDERED: morphine 2 MG/ML inj. syringe IV PRN (11:15)
[2020-11-14] MEDS ORDERED: ringers solution, lacted 1,000 ML IV SCH (11:15)
--- NOTE | 2020-11-14 11:35 | NUR ---
Received from OR via , accompanied by Anesthesiologist DR MULLIGAN and report given by Anesthesiolgist. AWAKENS TO VOICE. VITALS STABLE. DRESSING DI. ROSSY PAIN. IMMOBILIZER TO LLE. SENSATION AT THE FEET.
--- NOTE | 2020-11-14 12:45 | NUR ---
Report called to receiving nurse. Transferred via BED Belongings . Special Issues communicated to receiving nurse. AWAKE AND ORIENTED. VITALS STABLE. DRESSING DI. ROSSY PAIN. TO SURGICAL RM 357A AT THIS TIME.
[2020-11-14] MEDS: potassium cl 20mEq in 1/2 NS 1,000 ML IV SCH ×2 (15:53→21:51)
[2020-11-14] MEDS: ceFAZolin/D5W- 1GM premix 50 ML IV SCH (15:54)
--- NOTE | 2020-11-14 15:58 | NUR ---
TF consult: Pt s/p left BRIAN. Pt with h/o tongue cancer with a PEG in place for nutrition. 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 Pt reports home TF rx is 6.5 cans (250 mL/each can = 1625 mL total volume/day) of Fibersource of which he does as bolus feeds TID. Pt states he usually will have 3 cans (750 mL) WB and 2 cans (500 mL) BIDLD one day then 2 cans (500 mL) TID the next day to fulfill full rx. Pt states he previously added Premier Protein to his daily intake over the last year or so for increased kcal in hopes of gaining weight with previous weight being 150 lbs however has just recently discontinued doing so as he is now trying to lose weight with preferred wt being 160 lbs (current scaled weight is 165 lbs). Pt states he also mixes yogurt with 240 mL water of which he administers with his TF WL daily, though declines desire to receive it during admit. For water flushes pt reports he uses roughly 240 mL water for med spec TID with additional 480 mL water flush with feeds TID. Pt agrees to use formula available during admission, see below for TF recommendations. Pt reports usually with small BMs. No documented BM since admit. Pt denies GI discomfort. Will continue to follow closely. Recommendations: 1) To match home TF regimen: Bolus feeding via PEG using Jevity 1.2 with goal rate of 543 mL TID. To begin at goal as pt tolerates at home. To provide: 1629 mL total volume/day, 1955 kcal, 90 g protein, and 1319 mL water 2) Additional 100 mL water flush before and after each bolus feed 3) Prealbumin q Friday/ 4) Daily weights 5) Bowel care per rx Addendum: 11/14/20 at [address] Amended: Links added.
[2020-11-14] MEDS ORDERED: tranexamic acid 1gm/0.7% sal. 100 ML IV ONE (16:15)
[2020-11-14] MEDS ORDERED: acetaminophen 325mg tablet PEG PRN (18:05)
[2020-11-14] MEDS ORDERED: famotidine 20mg tablet PEG SCH (18:06)
[2020-11-14] MEDS ORDERED: magnesium hydroxide 30ml (MOM) UD suspension PEG PRN (18:07)
--- NOTE | 2020-11-14 19:00 | NUR ---
assted patient to bolus feed via his G-tube. gravity feed. 2 bottles given instead of 3 for nausea prevention. will reassess later tonight and use 3rd bottle if pt not nauseous. ice applied to left hip. knee brace on. changed out SCD pump x2 to get it to work
--- NOTE | 2020-11-14 19:19 | NUR ---
Problems reprioritized. Patient report given, questions answered & plan of care reviewed with Dariana CHAUDHRY.
[2020-11-14] MEDS ORDERED: ascorbic acid 500mg tablet PEG SCH (20:00)
--- NOTE | 2020-11-14 20:00 | NUR ---
pt able to use his own feeding methods and flush independently. assist with holding things if needed. Encouraged pt to only use 2 cans instead of 3 and check later for fullness. tolerated well.
[2020-11-14] MEDS ORDERED: sennosides 8.6mg tablet PEG SCH (21:00)
[2020-11-14] MEDS: gabapentin 300mg capsule PEG SCH (22:05)
[2020-11-15] MEDS: ceFAZolin/D5W- 1GM premix 50 ML IV SCH (02:08)
[2020-11-15 04:00] VITALS: BP 109/69
--- NOTE | 2020-11-15 05:30 | NUR ---
gave norco via g-tube. tolerated well. anxious to work with PT this am and "show off"
--- NOTE | 2020-11-15 06:40 | NUR ---
Patient in room IZA 357A. I have received report from ISIDORO BOJORQUEZ and had the opportunity to ask questions and assume patient care.
[2020-11-15 07:00] VITALS: BP 97/57
[2020-11-15 07:09] LABS: BASOPHILS % (AUTO) 0.2 % (0-1); EOSINOPHILS # (AUTO) 0.1 X10'3 (0-0.9); EOSINOPHILS % (AUTO) 1.3 % (0-6); HEMATOCRIT 32.4 % (42.0-52.0); HEMOGLOBIN 11.3 g/dl (14.0-17.9); LYMPHOCYTES # (AUTO) 0.5 X10'3 (1.1-4.8); LYMPHOCYTES % (AUTO) 7.1 % (21-51); MEAN CORPUSCULAR HEMOGLOBIN 34.3 PG (27.0-31.0); MEAN CORPUSCULAR HGB CONC 34.9 g/dL (33.0-36.5); MEAN CORPUSCULAR VOLUME 98.1 FL (78-98); MEAN PLATELET VOLUME 9.1 FL (7.4-10.4); MONOCYTES # (AUTO) 0.4 X10'3 (0-0.9); MONOCYTES % (AUTO) 6.5 % (2-12); NEUTROPHILS # (AUTO) 5.7 X10'3 (1.8-7.7); NEUTROPHILS % (AUTO) 84.9 % (42-75); PLATELET COUNT 124 X10'3 (140-440); RED CELL DISTRIBUTION WIDTH 13.8 % (11.5-14.5); WHITE BLOOD COUNT 6.7 X10'3 (4.5-11.0)
[2020-11-15] MEDS ORDERED: ASPI-1 PEG (07:32)
[2020-11-15] MEDS ORDERED: MULTIVIT-MIN/FERROUS GLUCONATE 9 MG/15 ML LIQUID PEG SCH (08:00)
[2020-11-15] MEDS ORDERED: multivitamins, therapeutics tablet PO SCH (08:00)
[2020-11-15 08:01] LABS: ANION GAP 8 (8-16); CHLORIDE 105 MMOL/L (99-107); POTASSIUM 4.1 MMOL/L (3.5-5.1); SODIUM 139 MMOL/L (135-145); TOTAL CARBON DIOXIDE 25.7 MMOL/L (24-32)
[2020-11-15] MEDS: gabapentin 300mg capsule PEG SCH (08:10)
[2020-11-15] MEDS ORDERED: aspirin 325mg tablet PEG SCH (08:30)
--- NOTE | 2020-11-15 10:45 | NUR ---
CASE MANAGEMENT DISCHARGE FOLLOW UP: Spoke with pt via telephone. Reports that he is feeling great; denies pain, s/sx of infection, CP/SOB. Verbalizes understanding of s/sx requiring further evaluation/emergent assistance. Verbalizes understanding of new and current medications. Verbalizes compliance with MD discharge instructions. Verbalizes understanding of the importance in making/keeping follow-up appointments. States questions/concerns and that he will be back in 2 months for a shoulder replacement.
--- NOTE | 2020-11-15 11:00 | NUR ---
PATIENT STABLE AND APPROPRIATE FOR DISCHARGE, IV TAKEN OUT, EDUCATION GIVEN, SCRIPT FOR NEW MEDS GIVEN, ALL BELONGINGS SENT WITH PATIENT, PATIENT TAKEN TO LOBBY IN WHEEL CHAIR TO AN AWAITING CAR WHERE FAMILY MEMBER WILL TAKE PATIENT HOME
[2020-11-15] MEDS ORDERED: celeCOXIB 100mg capsule PEG SCH (20:00)
== END 2020-11-15 11:00 | disposition home or self-care (01) ==
LOC: PAS 06:21 → SUR 3N 06:38 → PAS 11-15 11:00
PROVIDERS: ATTEND Orthopaedic Surgery
DX: M16.12 Unilateral primary osteoarthritis, left hip (principal); Z98.890 Other specified postprocedural states; Z87.891 Personal history of nicotine dependence; K21.9 Gastro-esophageal reflux disease without esophagitis; Z79.899 Other long term (current) drug therapy; Z20.822 Contact with and (suspected) exposure to COVID-19; Z87.81 Personal history of (healed) traumatic fracture
CPT/HCPCS: 27130; 36415; 71045; 72170; 80051; 80053; 82948; 85025; 85610; 85730; 86885; 86900; 86901; 87081; 87635; 97110; 97116; 97161; 97530; C1776; J0690; J1170; J1200; J2001; J2250; J2765; J3010; J3370; J7040; 86870; A4615; A7000; G0378; J3480; J3490; J7120

== ENCOUNTER 2021-05-03 09:04 | Emergency (ER) | payer MEDICARE, OTHER ==
[~2021-05-03] VITALS: Ht 172.7 cm; Wt 72.7 kg
[~2021-05-03 09:04] MED LIST changes: +ASPI-1 OGT; -acetaminophen 325mg tablet PO ONE; -ceFAZolin 2gm in dextrose, iso 50 ML IV ONE; -celeCOXIB 100mg capsule PO ONE; -gabapentin 300mg capsule PO ONE; -metoclopramide 5 mg/ml inj IV ONE; -oxyCODONE SR 10mg (sust. release) tab -2 tabs (20mg) PO ONE; -tranexamic acid 1gm/0.7% sal. 100 ML IV ONE; -vancomycin 1,500 MG in NS 300ml IV soln IV ONE
[2021-05-03] MEDS ORDERED: NAPR-56 PO (09:14)
[2021-05-03 09:29] VITALS: BP 95/58
[2021-05-03 09:55] LABS: BASOPHILS % (AUTO) 0.1 % (0-1); EOSINOPHILS % (AUTO) 0.2 % (0-6); HEMATOCRIT 32.7 % (42.0-52.0); HEMOGLOBIN 11.1 g/dl (14.0-17.9); LYMPHOCYTES # (AUTO) 0.2 X10'3 (1.1-4.8); LYMPHOCYTES % (AUTO) 4.7 % (21-51); MEAN CORPUSCULAR HEMOGLOBIN 34.3 PG (27.0-31.0); MEAN CORPUSCULAR VOLUME 100.8 FL (78-98); MEAN PLATELET VOLUME 9.2 FL (7.4-10.4); MONOCYTES # (AUTO) 0.2 X10'3 (0-0.9); MONOCYTES % (AUTO) 5.7 % (2-12); NEUTROPHILS % (AUTO) 89.3 % (42-75); PLATELET COUNT 94 X10'3 (140-440); RED BLOOD COUNT 3.24 X10'6 (4.70-6.10); WHITE BLOOD COUNT 3.4 X10'3 (4.5-11.0)
[2021-05-03 10:10] LABS: ALANINE AMINOTRANSFERASE 33 U/L (12-78); ALBUMIN 3.1 G/DL (3.4-5.0); ALBUMIN/GLOBULIN RATIO 0.8 (1.1-1.5); ALKALINE PHOSPHATASE 88 IU/L (46-116); ANION GAP 10 (8-16); ASPARTATE AMINO TRANSFERASE 44 U/L (10-37); BILIRUBIN,TOTAL 0.3 MG/DL (0.1-1.0); BLOOD UREA NITROGEN 28 MG/DL (7-18); BUN/CREATININE RATIO 28.9 (5.4-32.0); CALCIUM 8.5 MG/DL (8.5-10.1); CHLORIDE 102 MMOL/L (99-107); CREATININE 0.97 MG/DL (0.60-1.10); GLUCOSE 138 MG/DL (70-104); POTASSIUM 4.7 MMOL/L (3.5-5.1); SODIUM 138 MMOL/L (135-145); TOTAL CARBON DIOXIDE 25.9 MMOL/L (24-32); eGFR 76 ML/MIN
[2021-05-03] MEDS ORDERED: ALBU6.7H9 INH (10:26)
[2021-05-03] MEDS ORDERED: DEXA6TAB6 PO (10:26)
[2021-05-03] MEDS ORDERED: AZIT-63 PO (10:26)
== END 2021-05-03 11:30 | disposition home or self-care (01) ==
LOC: ER 09:05
DX: U07.1 COVID-19 (principal); R13.10 Dysphagia, unspecified; R05 Cough; G89.29 Other chronic pain; Z79.899 Other long term (current) drug therapy; Z79.82 Long term (current) use of aspirin
CPT/HCPCS: 36415; 71045; 80053; 85025; 87635; 99284; C9803

== ENCOUNTER 2022-02-18 07:53 | Day surgery (SDC) | payer MEDICARE, OTHER ==
[2022-02-12 15:56] LABS: BASOPHILS % (AUTO) 0.4 % (0-1); EOSINOPHILS # (AUTO) 0.1 X10'3 (0-0.9); EOSINOPHILS % (AUTO) 1.7 % (0-6); LYMPHOCYTES # (AUTO) 0.6 X10'3 (1.1-4.8); LYMPHOCYTES % (AUTO) 15.7 % (21-51); MEAN CORPUSCULAR HEMOGLOBIN 31.8 PG (27.0-31.0); MEAN CORPUSCULAR HGB CONC 33.2 g/dL (33.0-36.5); MEAN CORPUSCULAR VOLUME 95.9 FL (78-98); MEAN PLATELET VOLUME 9.9 FL (7.4-10.4); MONOCYTES # (AUTO) 0.3 X10'3 (0-0.9); MONOCYTES % (AUTO) 7.5 % (2-12); NEUTROPHILS # (AUTO) 2.9 X10'3 (1.8-7.7); NEUTROPHILS % (AUTO) 74.7 % (42-75); PRE OP HEMATOCRIT 35.5 % (42.0-52.0); PRE OP HEMOGLOBIN 11.8 g/dL (14.0-17.9); PRE OP PLATELET COUNT 123 X10'3 (140-440); RED CELL DISTRIBUTION WIDTH 15.1 % (11.5-14.5)
[2022-02-12 16:04] LABS: ALBUMIN/GLOBULIN RATIO 1.1 (1.1-1.5); ALKALINE PHOSPHATASE 70 IU/L (46-116); BLOOD UREA NITROGEN 25 MG/DL (7-18); BUN/CREATININE RATIO 30.1 (5.4-32.0); CALCIUM 9.5 MG/DL (8.5-10.1); CHLORIDE 102 MMOL/L (99-107); CREATININE 0.83 MG/DL (0.60-1.10); PRE OP ALT 19 U/L (30-65); PRE OP ANION GAP 4 (8-16); PRE OP AST 20 U/L (10-37); PRE OP BILIRUB, TOTAL 0.5 MG/DL (0.0-1.0); PRE OP GLUCOSE 101 MG/DL (70-104); PRE OP POTASSIUM 4.7 MMOL/L (3.4-5.1); PRE OP SODIUM 136 MMOL/L (135-145); TOTAL CARBON DIOXIDE 29.6 MMOL/L (24-32); TOTAL PROTEIN 7.5 G/DL (6.4-8.2); eGFR > 90 ML/MIN
[~2022-02-18] VITALS: Ht 172.7 cm; Wt 68.0 kg
[2022-02-18] VITALS (8 sets, daily range): BP systolic 128–148; BP diastolic 67–82
[~2022-02-18 07:53] MED LIST changes: +ACET-2006 PO; -ASPI-1 OGT; +CORDYCEPS; +LIDOcaine 1% 30ml preserv. free vial ONE; +VITA-268 PO; +[UNRECOGNIZED DRUG - OTHER]; +ceFAZolin inj. 1,000 MG in dextrose 5%-water 50ml 50 ML IV ONE; +famotidine 20mg tablet PO ONE; +ringers solution, lacted 1,000 ML IV SCH; +vitamin d3 liquid
[2022-02-18] MEDS ORDERED: fentaNYL/PF 50MCG/1 ML 2ML syringe ONE (08:52)
[2022-02-18] MEDS ORDERED: midazolam 1 mg/ML 2ml injection ONE (08:52)
[2022-02-18] MEDS ORDERED: ketorolac trometh. 30mg/ml inj. ONE (08:55)
[2022-02-18] MEDS ORDERED: BUPIVAcaine 0.5% inj/PF 30 ML ONE (09:09)
--- NOTE | 2022-02-18 09:58 | NUR ---
Received from OR via [facility], accompanied by Anesthesiologist DR GLYNN and report given by Anesthesiologist AND [employer]INT [employer] STENOGRAPHER. PT AWAKE, DENIES PAIN, RIGHT HAND/WRIST W/BIAS DRSChantal COVERING CDI.FINGERS PWD, SHRIMPER 1-2 SECONDS. Addendum: 02/18/22 at 1034 by Val Servin RN Amended: Links added.
--- NOTE | 2022-02-18 11:18 | NUR ---
PT UP AND ABLE TO AMBULATE SAFELY, STATES IS COMFORTABLE. D/C INSTRUCTIONS GIVEN AND GONE OVER W/PT WHO VERBALIZED UNDERSTANDING. PT D/CD TO HOME VIA W/C TO PRIVATE VEHICLE W/O INCIDENT. Addendum: 02/18/22 at 1128 by Val Servin RN Amended: Links added.
== END 2022-02-18 11:18 | disposition home or self-care (01) ==
LOC: PAS 07:53
PROVIDERS: ATTEND Orthopaedic Surgery Hand Surgery
DX: G56.01 Carpal tunnel syndrome, right upper limb (principal); M16.12 Unilateral primary osteoarthritis, left hip; M19.012 Primary osteoarthritis, left shoulder; K21.9 Gastro-esophageal reflux disease without esophagitis; Z20.822 Contact with and (suspected) exposure to COVID-19; Z96.612 Presence of left artificial shoulder joint; Z96.611 Presence of right artificial shoulder joint; Z96.642 Presence of left artificial hip joint; Z96.652 Presence of left artificial knee joint; Z98.890 Other specified postprocedural states; Z87.891 Personal history of nicotine dependence; Z85.810 Personal history of malignant neoplasm of tongue; Z79.899 Other long term (current) drug therapy
CPT/HCPCS: 36415; 64721; 80053; 82948; 85025; 93005; J0690; J1885; J2250; J3010; J3490; J7030; J7060; J7120; S0020; U0003; U0005; Z7506; Z7512; A4215; A6449

== ENCOUNTER 2022-04-01 05:44 | Day surgery (SDC) | payer MEDICARE, OTHER ==
[2022-03-25 14:18] LABS: BASOPHILS % (AUTO) 0.4 % (0-1); EOSINOPHILS % (AUTO) 0.8 % (0-6); LYMPHOCYTES # (AUTO) 0.5 X10'3 (1.1-4.8); LYMPHOCYTES % (AUTO) 8.9 % (21-51); MEAN CORPUSCULAR HEMOGLOBIN 32.5 PG (27.0-31.0); MEAN CORPUSCULAR HGB CONC 33.5 g/dL (33.0-36.5); MEAN CORPUSCULAR VOLUME 96.9 FL (78-98); MEAN PLATELET VOLUME 9.5 FL (7.4-10.4); MONOCYTES # (AUTO) 0.3 X10'3 (0-0.9); MONOCYTES % (AUTO) 6.3 % (2-12); NEUTROPHILS # (AUTO) 4.4 X10'3 (1.8-7.7); NEUTROPHILS % (AUTO) 83.6 % (42-75); PRE OP HEMATOCRIT 35.2 % (42.0-52.0); PRE OP HEMOGLOBIN 11.8 g/dL (14.0-17.9); PRE OP PLATELET COUNT 145 X10'3 (140-440); RED BLOOD COUNT 3.63 X10'6 (4.70-6.10); RED CELL DISTRIBUTION WIDTH 14.7 % (11.5-14.5)
[2022-03-25 14:29] LABS: ALBUMIN 3.9 G/DL (3.4-5.0); ALBUMIN/GLOBULIN RATIO 1.1 (1.1-1.5); ALKALINE PHOSPHATASE 74 IU/L (46-116); BLOOD UREA NITROGEN 31 MG/DL (7-18); BUN/CREATININE RATIO 30.7 (5.4-32.0); CALCIUM 9.7 MG/DL (8.5-10.1); CHLORIDE 105 MMOL/L (99-107); CREATININE 1.01 MG/DL (0.60-1.10); PRE OP ALT 20 U/L (30-65); PRE OP ANION GAP 8 (8-16); PRE OP AST 29 U/L (10-37); PRE OP BILIRUB, TOTAL 0.7 MG/DL (0.0-1.0); PRE OP GLUCOSE 100 MG/DL (70-104); PRE OP POTASSIUM 4.7 MMOL/L (3.4-5.1); PRE OP SODIUM 141 MMOL/L (135-145); TOTAL PROTEIN 7.6 G/DL (6.4-8.2); eGFR 72 ML/MIN
[~2022-04-01] VITALS: Ht 172.7 cm; Wt 66.0 kg
[2022-04-01] VITALS (8 sets, daily range): BP systolic 117–151; BP diastolic 70–83
[~2022-04-01 05:44] MED LIST changes: -LIDOcaine 1% 30ml preserv. free vial ONE; -ceFAZolin inj. 1,000 MG in dextrose 5%-water 50ml 50 ML IV ONE; +ceFAZolin inj. 2,000 MG in dextrose 5%-water 100 ML IV ONE
[2022-04-01] MEDS ORDERED: LIDOcaine 1% (10mg/ml) 2ml vial ONE (06:06)
[2022-04-01] MEDS ORDERED: BUPIVAcaine/PF 2.5mg/ml (0.25%) 10ml vial ONE (06:51)
[2022-04-01] MEDS ORDERED: labetalol 20mg/4ml (5mg/ml) syringe IV PRN (07:55)
[2022-04-01] MEDS ORDERED: ondansetron/PF 4mg/2ml inj IV PRN (07:55)
[2022-04-01] MEDS ORDERED: hydrALAZINE 20mg/ml inj. IV PRN (07:55)
[2022-04-01] MEDS ORDERED: fentaNYL/PF 50MCG/1 ML 2ML syringe IV PRN ×2 (07:55)
[2022-04-01] MEDS ORDERED: ringers solution, lacted 1,000 ML IV SCH (07:55)
[2022-04-01] MEDS ORDERED: morphine 4 MG/ML inj SYRINge IV PRN (07:55)
[2022-04-01] MEDS ORDERED: morphine 2 MG/ML inj. syringe IV PRN (07:55)
[2022-04-01] MEDS ORDERED: fentaNYL/PF 50MCG/1 ML 2ML syringe ONE (09:17)
[2022-04-01] MEDS ORDERED: midazolam 1 mg/ML 2ml injection ONE (09:17)
[2022-04-01] MEDS ORDERED: LIDOcaine 0.5% (5mg/ml) 50ml vial ONE (09:21)
[2022-04-01] MEDS ORDERED: ATROPINE SULFATE 0.4 MG/ML injection (OR only) ONE (09:26)
--- NOTE | 2022-04-01 09:33 | NUR ---
Received from OR via [facility], accompanied by Anesthesiologist and report given by ANALI Anesthesiologist. PATIENT WAKING UP, NO S/S OF PAIN, V/S WNL, SCD ON, 20G TO RUE, LEFT WRIST DRESSING CDI. ICE AND ELEVATED LUE.
--- NOTE | 2022-04-01 10:23 | NUR ---
PATIENT A&OX4, DENIES PAIN, V/S WNL, SCD OFF, 20G TO LUE D/C, RIGHT WRIST DRESSING CDI. ICE AND ELEVATED RUE. I HAVE REVIEWED D/C INSTRUCTIONS WITH PATIENT and they have verbalized understanding patient d/c home with all belongings and family gave transport home. Addendum: 04/01/22 at 1027 by Hubert Taylor RN Amended: Links added. Addendum: 04/01/22 at 1445 by Hubert Taylor RN PATIENT A&OX4, DENIES PAIN, V/S WNL, SCD OFF, 20G TO RUE D/C, LEFT FOREARM DRESSING CDI. ICE AND ELEVATED LUE. I HAVE REVIEWED D/C INSTRUCTIONS WITH PATIENT and they have verbalized understanding patient d/c home with all belongings and family gave transport home. Addendum: 04/01/22 at 1454 by Hubert Taylor RN PATIENT A&OX4, DENIES PAIN, V/S WNL, SCD OFF, 20G TO RUE D/C, LEFT WRIST DRESSING CDI. ICE AND ELEVATED LUE. I HAVE REVIEWED D/C INSTRUCTIONS WITH PATIENT and they have verbalized understanding patient d/c home with all belongings and family gave transport home.
== END 2022-04-01 10:23 | disposition home or self-care (01) ==
LOC: PAS 05:44
PROVIDERS: ATTEND Orthopaedic Surgery Hand Surgery
DX: G56.02 Carpal tunnel syndrome, left upper limb (principal); K21.9 Gastro-esophageal reflux disease without esophagitis; M19.90 Unspecified osteoarthritis, unspecified site; Z79.899 Other long term (current) drug therapy; Z98.890 Other specified postprocedural states; M16.12 Unilateral primary osteoarthritis, left hip; Z96.642 Presence of left artificial hip joint; Z96.612 Presence of left artificial shoulder joint; Z96.611 Presence of right artificial shoulder joint; M19.012 Primary osteoarthritis, left shoulder
CPT/HCPCS: 36415; 64721; 80053; 82948; 85025; J0690; J2250; J3010; J3490; J7030; J7060; J7120; Z7506; Z7512; A4215